=== PATIENT | male | born 1980 | race African-American/Black ===

== ENCOUNTER 2016-12-13 22:17 | Emergency (ER) | payer OTHER ==
[~2016-12-13] VITALS: Ht 185.4 cm; Wt 154.2 kg
[2016-12-13] MEDS ORDERED: NO MEDICATIONS (22:48)
== END 2016-12-14 02:43 | disposition home or self-care (01) ==
LOC: SED 22:17
DX: L02.213 Cutaneous abscess of chest wall (principal); R30.0 Dysuria; F17.210 Nicotine dependence, cigarettes, uncomplicated; Z23 Encounter for immunization
CPT/HCPCS: 10060; 90471; 90715; 96372; 99282; J0696